=== PATIENT | female | born 1990 | race Caucasian/White ===

== ENCOUNTER 2016-07-03 07:08 | Emergency (ER) | payer BC ==
[2016-07-03 07:14] VITALS: BP 130/96
[2016-07-03] MEDS ORDERED: LORazepam TAB(*) 1 MG PO ONE (07:45)
[2016-07-03] MEDS ORDERED: Ketorolac INJ* 60 MG/2 ML VIAL IM ONE (07:45)
--- NOTE | 2016-07-03 08:41 | ED ---
Augustin Bonilla Matthew, scribed for Kamran Owens MD on 07/03/16 at 0731 . Neck Pain - HPI Summary HPI Summary: A 26 y/o female presents to the ED with a sudden, constant, right sided neck spasm since 07:11. The pain is rated 8/10 in severity and is worse with any movement. She describes the pain has muscle pain. - History of Current Complaint Chief Complaint: EDNeckComplaint Stated Complaint: NECK PAIN Hx Obtained From: Patient Onset/Duration Of Injury/Symptoms: Minutes Mechanism Of Injury: No Known Trauma Timing: Constant Onset/Duration: Sudden Onset, Started hours ago, Still Present Severity Initially: Moderate Severity Currently: Moderate Pain Intensity: 8 Pain Scale Used: 0-10 Numeric Location: Discrete At: - right side of the neck Character: Spasmotic Aggravating Factors: Movement Alleviating Factors: Nothing Associated Signs & Symptoms: Positive: Negative - Allergies/Home Medications Allergies/Adverse Reactions: Allergies Allergy/AdvReac Type Severity Reaction Status Date / Time No Known Allergies Allergy Verified 02/17/16 05:15 PMH/Surg Hx/FS Hx/Imm Hx Endocrine/Hematology History: Denies: Hx Diabetes Respiratory History: Reports: Hx Asthma - Cancer History Cancer Type, 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, right calf Infectious Disease History: No Infectious Disease History: Denies: Traveled Outside the [place] in Last 30 Days - Family History Family History: FHx of DVT in Aunt - Social History Alcohol Use: Rare Substance Use Type: Reports: None Smoking Status (MU): Never Smoked Tobacco Review of Systems Constitutional: Negative Eyes: Negative ENT: Negative Cardiovascular: Negative Respiratory: Negative Gastrointestinal: Negative Genitourinary: Negative Positive: Myalgia - right sided neck spasm with pain Skin: Negative Neurological: Negative Psychological: Normal All Other Systems Reviewed And Are Negative: Yes Physical Exam Triage Information Reviewed: Yes Vital Signs On Initial Exam: Initial Vitals Temp Pulse Resp BP Pulse Ox 97.6 F 71 20 130/96 100 07/03/16 07:10 07/03/16 07:10 07/03/16 07:10 07/03/16 07:10 07/03/16 07:10 Vital Signs Reviewed: Yes Appearance: Positive: Well-Appearing, No Pain Distress Skin: Positive: Warm, Skin Color Reflects Adequate Perfusion, Dry Head/Face: Positive: Normal Head/Face Inspection Eyes: Positive: Normal ENT: Positive: Normal ENT inspection Neck: Positive: Supple, No Lymphadenopathy, Other: - Right posterior para cervical region tenderness Respiratory/Lung Sounds: Positive: Clear to Auscultation, Breath Sounds Present Cardiovascular: Positive: RRR Abdomen Description: Positive: Nontender, Soft Bowel Sounds: Positive: Present Musculoskeletal: Positive: Normal Neurological: Positive: Normal, Alert, Oriented to Person Place, Time Psychiatric: Positive: Affect/Mood Appropriate - [place] Coma Scale Coma Scale Total: 15 Diagnostics - Vital Signs Vital Signs Temp Pulse Resp BP Pulse Ox 07/03/16 07:10 97.6 F 71 20 130/96 100 - Laboratory Lab Statement: Any lab studies that have been ordered have been reviewed, and results considered in the medical decision making process. Neck Course/Dx - Course Course Of Treatment: Elma Michel woke up this AM with pain on the left side of her neck prohibiting any movement. She was tender in the paracervicle area on the right and improved quite a bit with ketorolac as anti-inflammatory and ativan as a muscle relaxant and I will treat her accordingly. - Diagnoses Provider Diagnoses: Torticollis Discharge - Discharge Plan Condition: Stable Disposition: HOME Prescriptions: LORazepam TAB(*) [Ativan TAB(*)] 1 mg PO Q6H PRN #20 tab MDD 4 PRN Reason: Pain Patient Education Materials: Lorazepam (By mouth), Spasmodic Torticollis (ED) Referrals: [facility] [Outside] Additional Instructions: Please follow-up with your primary care physician in 2 days. It's also recommended that you take ibuprofen as directed on the medication for pain. The documentation as recorded by the Augustin ferreira Matthew accurately reflects the service I personally performed and the decisions made by me, Kamran Owens MD.
== END 2016-07-03 09:01 | disposition home or self-care (01) ==
LOC: ED 07:08
DX: M43.6 Torticollis (principal); M54.2 Cervicalgia
CPT/HCPCS: 96372; 99282; A9270-GY; J1885